=== PATIENT | male | born 1995 | race Caucasian/White ===

== ENCOUNTER 2016-10-23 11:46 | Emergency (ER) | payer OTHER ==
[2016-10-23 11:55] VITALS: BP 128/75
[2016-10-23] MEDS ORDERED: PENICILLIN V POTASSIUM 250 MG TABLET PO ONE (12:26)
[2016-10-23] MEDS ORDERED: PENICILLIN V POTASSIUM 250 MG TABLET ONE (12:27)
--- NOTE | 2016-10-23 12:29 | ERNOTE ---
ENT HPI Date of Service: 10/23/16 Presenting Symptoms: dental pain Time Seen by Provider: 10/23/16 12:18 Source: patient, RN notes reviewed Exam Limitations: no limitations - Immun/Allergies/Home Medications Immunizations: IMMUNIZATION HX Immunizations Up to Date Yes History of Influenza Vaccine Yes Hx Pneumococcal Vaccination No Allergies/Adverse Reactions: Allergies Allergy/AdvReac Type Severity Reaction Status Date / Time beeswax Allergy Severe Swelling Verified 10/23/16 11:55 of Throat Home Medications: HOME MEDICATIONS Penicillin V Potassium [Pen-Vee K] 500 mg PO Q8H #30 tab 10/23/16 [Last Taken Unknown] - History of Present Illness Narrative: 20 y/o male ambulatory to the ED for dental pain that began a few days ago and facial swelling that began today. He has not taken anything for his symptoms. He has not seen a dentist for some time. ENT Location: Present: dental, facial Prearrival Treatment: Present: no prearrival treatment Associated Symptoms - ENT: Reports: poor solid intake, facial pain/swelling, tooth pain, jaw swelling. Denies: fever, malaise, poor fluid intake, cough, voice change, sore throat, drooling, nasal congestion/drainage, headache Prior Treament: Denies: recently seen Review of Systems - Review of Systems Constitutional: Present: See HPI EYE: Absent: eye pain, vision changes ENT: Present: See HPI Respiratory: Absent: shortness of breath, cough Cardiology: Present: no symptoms reported Gastrointestinal/Abdominal: Absent: nausea, abdominal pain Genitourinary: Present: no symptoms reported Musculoskeletal: Absent: muscle stiffness, neck pain Skin: Absent: rash Neurological: Absent: headache, dizziness/light-headedness Endocrine: Present: no symptoms reported Hematologic/Lymphatic: Present: no symptoms reported Psych: Present: no symptoms reported - Patient's Past Medical History Patient History - Medical: No pertinent hx Patient History - Cardiac/Respiratory: No pertinent hx Patient History - Cancer: No Hx of Cancer Patient History - Surgical Procedures: No surgical history Patient History - Other: None - Social History Living Situations: home Abuse History: No History of abuse Psych History: No pertinent hx Smoking Status: Never smoker Alcohol Use: none Drug Use: marijuana - Immunizations Immunizations Up to Date: Yes Hx Pneumococcal Vaccination: No History of Influenza Vaccine: Yes Physical Exam - Physical Exam General Appearance: Present: wd/wn, alert, no apparent distress Eye Exam: Normal inspection: bilateral, PERRL: bilateral Ears, Nose, Throat: Present: nasal congestion - left, normal pharynx, other - Several teeth with decay, #13 tender to palpation, mild surrounding gingival inflammation, moderate swelling to left maxillary region. Absent: abnormal TM ( R), abnormal TM (L), sinus pain/drainage, dry mucous membranes Neck: Present: normal inspection, nontender, supple. Absent: lymphadenopathy (R ), lymphadenopathy (L) Respiratory: Present: no respiratory distress, normal breath sounds, no accessory muscle use, lungs clear Cardiovascular/Chest: Present: regular rate, rhythm, no murmur Neurological Exam: Present: alert, oriented, normal mood/affect, no motor/ sensory deficits Skin Exam: Present: normal color, warm/dry ED Progress - Vital Signs Patient's Vital Signs:: I have reviewed the patient's vital signs. Vital Signs: Vital Signs 10/23/16 11:48 Temperature 36.8 C Pulse Rate 98 Respiratory 16 Rate Blood Pressure 128/75 O2 Sat by Pulse 97 Oximetry - Progress/Reassessment Chief Complaint: Dental Problem Progress:: Unchanged Departure Clinical Impression: Dental abscess - Departure Disposition: Home Follow Up Needed Condition: Stable Instructions: Dental Abscess, [id number] Additional Instructions: Use heat on swollen area Ibuprofen for pain - can also take Tylenol Contact a dentist tomorrow Return for fevers, vomiting, worsening pain or other concerns Prescriptions: Penicillin V Potassium [Pen-Vee K] 500 mg PO Q8H #30 tab
== END 2016-10-23 12:33 | disposition home or self-care (01) ==
LOC: ER 11:46
DX: K04.7 Periapical abscess without sinus (principal)